=== PATIENT | male | born 1975 | race Caucasian/White ===

== ENCOUNTER 2021-03-05 05:40 | Day surgery (SDC) | payer OTHER ==
[~2021-03-05] VITALS: Ht 165.1 cm; Wt 70.5 kg
[~2021-03-05 05:40] MED LIST: PEPCID20 MG PO; PROBIOTIC1 EAC1 PO; ZYRTEC10 MG PO
[2021-03-05] MEDS ORDERED: MULTIVITAMIN1 EACH PO (05:57)
--- NOTE | 2021-03-05 06:31 | NUR ---
COVID SWAB SENT TO IN-HOUSE LAB
--- NOTE | 2021-03-05 08:19 | NUR ---
03/05/21 0819 Brandy Latif 0813 PATIENT ARRIVES TO PACU RESTING WITH EYE CLOSED. ANSWERS QUESTIONS APPROPRIATELY. RESP EVEN AND UNLABORED, OXYGEN OFF ON ARRIVAL TO PACU. ROOM AIR SATS >97%. DENIES PAIN OR NAUSEA.
--- NOTE | 2021-03-06 08:05 | OR ---
[facility] [address], [place] [address] Signed DATE OF OPERATION: 03/05/2021 SURGEON: Neno Whittington MD PREOPERATIVE DIAGNOSES: 1. Heartburn. 2. Gastroesophageal reflux disease. 3. Father with severe gastroesophageal reflux disease, peptic ulcer disease and Helicobacter pylori. POSTOPERATIVE DIAGNOSES: 1. Mild diffuse gastritis. 2. Mildly poor flap valve mechanism. PROCEDURE: Esophagogastroduodenoscopy with CLOtest and biopsies of the antrum, gastroesophageal junction. ESTIMATED BLOOD LOSS: None. INDICATIONS: Zakia is a 45-year-old gentleman asked to see me for upper endoscopy. He is from our local group home. He has been having trouble for at least a year now with substernal chest pain, heartburn and acid reflux. He has tried probiotics and garlic. He did use Zantac, which he felt worked pretty well. He used some Rolaids and eventually went over to Prilosec. The Prilosec did not seem to help. He is now on Pepcid. He is not sure if the Pepcid is helping all that much. He mentioned that his dad had similar issues when about the same age. There was discussion of his dad having severe acid reflux with peptic ulcer disease and H pylori. Due to his ongoing persistent symptoms, he was asked to see me for upper endoscopy. I gave him a pamphlet in the office on upper endoscopy. He understands the nature of the test. There is risk including, but not limited to gas bloating, crampy abdominal pain, bleeding, perforation requiring surgery, and missed diagnosis. He also understands the need for IV conscious sedation. He had expressed understanding and wished to proceed. DESCRIPTION OF PROCEDURE: Zakia was taken into our endoscopy suite and placed in the supine semi-recumbent position. The posterior oropharynx was anesthetized with Hurricaine spray. A bite block was utilized for the case. He was given a total of 4 mg of Versed and 100 mcg of Electronically Signed By: NENO WHITTINGTON MD 03/06/21 0805 PATIENT NAME: ZAKIA PETERS OPERATIVE REPORT DATE OF : 73 REPORT #: [id number] PHYSICIAN: NENO WHITTINGTON MD PCP: ARIC SILVESTRE MD REPORT IS CONFIDENTIAL AND NOT TO BE RELEASED WITHOUT AUTHORIZATION [facility] [address], [place] [address] Signed fentanyl to cover the case. The adult gastroscope had been introduced and advanced quite readily out into the third portion of the duodenum under direct visualization of camera without difficulty. The duodenum and pyloric channel were unremarkable. He had very mild erythema in the stomach. No evidence of any ulcers. We took a biopsy of the antrum for CLOtest as well as pathologic review. Upon retroflexion of scope, he has no obvious hiatal hernia. He may have just a short somewhat mildly poor flap valve mechanism. The scope had been withdrawn up through the area of the GE junction, which was compliant without stricture. No disruption to the Z-line. There was no Goins's mucosa. We went ahead and took a biopsy along the edge of the Z-line for pathologic review. Distal, middle and upper esophagus were unremarkable. After this, the gas was suctioned out and the gastroscope removed. Zakia tolerated the procedure quite well. RECOMMENDATIONS: I will see Zakia back in my office in 7 to 14 days to review his results. He will stay on the Pepcid. MD KEVEN Schafer/MODL /[id number] cc: [facility] Neno Whittington MD Copies: NENO WHITTINGTON MD ~ Electronically Signed By: NENO WHITTINGTON MD 03/06/21 0805 PATIENT NAME: ZAKIA PETERS OPERATIVE REPORT DATE OF : 73 REPORT #: [id number] PHYSICIAN: NENO WHITTINGTON MD PCP: ARIC SILVESTRE MD REPORT IS CONFIDENTIAL AND NOT TO BE RELEASED WITHOUT AUTHORIZATION
--- NOTE | 2021-03-06 13:01 | PATH ---
[facility] [address] [place], [place] [address] Signed SPECIMEN(S): A ANTRUM/PYLORUS SPECIMEN(S): B GE JUNCTION SPECIMEN SOURCE: A. ANTRUM/PYLORUS B. GE JUNCTION CLINICAL HISTORY: Esophagogastroduodenoscopy. Reflux. Dx: Mild gastritis. MICROSCOPIC DESCRIPTION: Histologic sections of all submitted blocks are examined by light microscopy. These findings, together with the gross examination, support the pathologic diagnosis. FINAL PATHOLOGIC DIAGNOSIS: A. Stomach, antrum/pylorus, biopsy: - Antral mucosa with very minimal chronic, inactive gastritis. - Negative for Helicobacter organisms on HE stain. - Negative for dysplasia or malignancy. B. Gastroesophageal junction, biopsy: - Squamous mucosa with change suggestive of mild reflux esophagitis. - Negative for intestinal metaplasia, dysplasia, or malignancy. NAL:cml:C2NR GROSS DESCRIPTION: Two specimens are received in two containers, labeled "BA." A. The specimen, labeled "BA," and designated on the requisition "antrum/pylorus," is received in formalin and consists of one saldana soft tissue fragment that measures 0.3 cm in greatest dimension. The specimen is entirely submitted in cassette (A1). B. The specimen, labeled "BA," and designated on the requisition "GE junction," is received in formalin and consists of one saldana soft tissue fragment that measures 0.4 cm in greatest dimension. The specimen is entirely submitted in cassette (B1). AT (under the direct supervision of a pathologist) The Gross Description was prepared using a voice recognition system. The report was reviewed for accuracy; however, sound-alike word errors, addition and/or deletions may occur. If there is any question about this report, please contact Client Services. PERFORMING LABORATORY: PATIENT NAME: ZAKIA PETERS PATHOLOGY DATE OF : 73 REPORT #: [id number] PHYSICIAN: ROJELIO RICO PCP: ARIC SILVESTRE MD REPORT IS CONFIDENTIAL AND NOT TO BE RELEASED WITHOUT AUTHORIZATION [facility] [address] [address] Signed The technical component was performed by [employer] [facility], [address] [place] [address] (Cut Off Saw Operator: Josy Davis MD; CLIA# [id number]). Professional interpretation was performed by [facility], [address] [place] [id number] (CLIA# [id number]). Diagnostician: Mona Finley MD Pathologist Electronically Signed 03/06/2021 Copies: ~ PATIENT NAME: ZAKIA PETERS PATHOLOGY DATE OF : 73 REPORT #: [id number] PHYSICIAN: ROJELIO RICO PCP: ARIC SILVESTRE MD REPORT IS CONFIDENTIAL AND NOT TO BE RELEASED WITHOUT AUTHORIZATION
== END 2021-03-05 08:35 | disposition home or self-care (01) ==
LOC: DS 05:40 → OPS 05:40 → DS 06:45 → OPS 06:45
PROVIDERS: ATTEND Colon & Rectal Surgery
PROC: 0DB78ZX Excision of Stomach, Pylorus, Via Natural or Artificial Opening Endoscopic, Diagnostic (ICD-10-PCS; 2021-03-05)
PROC: 0DB48ZX Excision of Esophagogastric Junction, Via Natural or Artificial Opening Endoscopic, Diagnostic (ICD-10-PCS; principal; 2021-03-05 06:45)
DX: K21.00 Gastro-esophageal reflux disease with esophagitis, without bleeding (principal); K29.50 Unspecified chronic gastritis without bleeding; Z91.048 Other nonmedicinal substance allergy status; Z83.79 Family history of other diseases of the digestive system; Z20.822 Contact with and (suspected) exposure to COVID-19
CPT/HCPCS: C9803; G0500; J2250; J3010; J7121; U0003